=== PATIENT | male | born 1965 | race African-American/Black ===

== ENCOUNTER 2017-03-14 08:46 | Observation (INO) | payer OTHER ==
--- NOTE | ~2017-03-14 | DS ---
Unit #: [id number] #: [id number] Patient: SALINAS FRANCOIS [id number] [address] [place], [place] [address] [id number] MR#: [id number] NAME: SALINAS FRANCOIS ROOM: 579 Age: 52 Sex: M Admission Date: 03/14/2017 : 1965 Discharge Date: 03/15/2017 Attending Physician: José Guerrero M.D. Primary Care Physician: Rolando Munguia M.D. DISCHARGE SUMMARY DISCHARGE DIAGNOSES 1. Recurrent paroxysmal atrial fibrillation with RVR, now in sinus rhythm. 2. Cardiomyopathy with an left ventricular ejection fraction of 30%-35%, grade 1 diastolic dysfunction. 3. Alcohol use. 4. Tobaccoism. 5. Xarelto allergy. DIAGNOSTIC DATA CARDIOVASCULAR: Two-dimensional echocardiogram done on 03/14/2017 shows an ejection fraction of 30%-35%, moderate generalized hypokinesis of the left ventricle noted, normal left ventricular wall thickness. The ventricle wall is normal, impaired relaxation, normal function of all valves. LABORATORY: Most recent laboratory results are urine drug screen positive for marijuana. TSH 1.11, sodium 139, potassium 3.8, chloride 107, CO2 24, BUN 14, creatinine 1, glucose 95, magnesium 1.8. Oljsy-ce-bhmm troponin is less than 0.5. HOSPITAL COURSE The patient is a 52-year-old male who is known to [facility] from 2013, when he had atrial fibrillation with rapid ventricular rate. He had seen Dr. Nugent in the past. Also in 11/2013, a two-dimensional echocardiogram showed an ejection fraction of 35%-40%. The patient presented to the emergency department saying for the last two days he has not felt very well. He states that he felt his heart had been racing and it was staying consistent. He also endorsed some lightheadedness and dizziness that were associated with a rapid heart rate. He denied any chest pain or chest pressure. He did not have any syncopal episodes. Initially the patient was treated with an IV bolus of Cardizem 20 and started on a drip at 5 mg an hour. The patient was also given Lovenox 1 mg/kg times 1. The patient converted to sinus rhythm and the patient was started on Cardizem CD 120 mg p.o. daily. Today the patient's heart rate continues to show sinus rhythm. He is on Cardizem and aspirin. His repeat two-dimensional echocardiogram again showed an ejection fraction of 30%-35%. The patient will be started on an CARMELLA inhibitor. His CHADS VAD score is zero. I have discussed this patient with Dr. Guerrero and he will evaluate the patient prior to discharge to discuss anticoagulation with the patient. Unit #: [id number] #: [id number] Patient: SALINAS FRANCOIS DISPOSITION The patient will be discharged home after seen by Dr. Guerrero. FOLLOWUP The patient is to follow up with Dr. Nugent in three weeks. DIET Healthy heart diet. ACTIVITY As tolerated. DISCHARGE INSTRUCTIONS 1. Cardiac rehab to see for smoking cessation. 2. Quit smoking. 3. The patient is to seek medical attention or return to the emergency room if signs or symptoms worsen. DISCHARGE MEDICATIONS 1. Cardizem CD 120 mg p.o. daily. 2. Aspirin 81 mg p.o. daily. 3. Lisinopril 5 mg p.o. daily. Dictated by... Malia Sheffield A.P.R.N. for José Guerrero M.D. AM/ramon TD: 03/15/2017 10:25 JOB #: [id number] DISCHARGE SUMMARY Page 1 of 1 X Malia Sheffield [employer] X DISCHARGE SUMMARY
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
--- NOTE | ~2017-03-14 | EKG ---
PATIENT: SALINAS FRANCOIS UNIT #: [id number] Ventricular Rate: 155 BPM Atrial Rate: 153 BPM QRS Duration: 80 ms Q-T Interval: 260 ms QTC Calculation(Bezet): 417 ms Calculated R [place]: 68 degrees Calculated T [place]: 35 degrees Diagnosis Line: Atrial fibrillation with rapid ventricular Diagnosis Line: response Diagnosis Line: Abnormal ECG Diagnosis Line: When compared with ECG of 05-NOV-2013 16:43, Diagnosis Line: No significant change was found Diagnosis Line: Confirmed by ILBRA SLATER MD ([id number]) on 03/15/2017 Diagnosis Line: 11:13:03 PM INTERPRETING MD: NOHEMY ESTEVEZ
--- NOTE | ~2017-03-14 | CR72 ---
[facility] A Service of [facility] RADIOLOGY TEXT RESULTS PATIENT: SALINAS FRANCOIS LOCATION: [facility] 579-01 : [birth year] UNIT #: [id number] AGE: [address]: José Guerrero MD SEX: M ORDER DR: [id number] [facility] [address]. [place], [place] [address] [id number] MR#: [id number] Acc #: [id number] NAME: SALINAS FRANCOIS : 1965 SEX: M STUDY DATE/TIME: 03/14/2017 UNIT: [facility] ROOM: STUDY DESCRIPTION: CR Chest Single View Portable Attending Physician: Pamela Wong M.D. Ordering Physician: Pamela Wong M.D. Primary Care Physician: Rolando Munguia M.D. MEDICAL IMAGING REPORT This report is preliminary unless electronic signature is present EXAM Chest portable 03/14/2017 09:42 hours HISTORY 52-year-old man who presents with arrhythmia today. Hypertension. COMPARISON None FINDINGS Portable upright chest demonstrates normal cardiac, mediastinal and hilar contours. The lungs are well expanded and clear. There is no effusion. IMPRESSION Normal upright portable chest. Dictated by... Sameera Borges M.D. THIS IS AN ELECTRONICALLY VERIFIED REPORT Sameera Borges M.D. at 03/14/2017 2:28 PM SMM/mickey TD: 03/14/2017 12:01 JOB #: [id number] MEDICAL IMAGING REPORT Page 1 of 1 COPY
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
--- NOTE | ~2017-03-14 | EKG ---
PATIENT: SALINAS FRANCOIS UNIT #: [id number] Ventricular Rate: 83 BPM Atrial Rate: 83 BPM P-R Interval: 132 ms QRS Duration: 88 ms Q-T Interval: 414 ms QTC Calculation(Bezet): 486 ms P [place]: 65 degrees Calculated R [place]: 49 degrees Calculated T [place]: 30 degrees Diagnosis Line: Normal sinus rhythm Diagnosis Line: Prolonged QT Diagnosis Line: Abnormal ECG Diagnosis Line: When compared with ECG of 14-MAR-2017 09:18, Diagnosis Line: (unconfirmed) Diagnosis Line: Sinus rhythm has replaced Atrial fibrillation Diagnosis Line: Vent. rate has decreased BY 72 BPM Diagnosis Line: Confirmed by ZANDRA MAXWELL MD ([id number]) on 03/15/2017 Diagnosis Line: 10:05:08 AM INTERPRETING MD: ALISSA ESTEVEZ
[~2017-03-14 08:46] MED LIST: LORTAB 7.51 TAB 7.5/ PO; TOPROL XL PO; XARELTO20 MG PO
[2017-03-14 10:02] LABS: BASOPHIL% 0.6 % (0-2.5); EOSINOPHIL# 0.1 X10e3 (0-0.7); EOSINOPHIL% 1.8 % (0.0-7.0); HEMATOCRIT 48.3 % (38.0-50.0); HEMOGLOBIN 15.8 gm/dL (13.0-16.0); LYMPHOCYTE# 2.3 X10e3 (1.0-3.5); MEAN CELL VOLUME 98.2 FL (83-96); MEAN CORPUSCULAR HEMOGLOBIN 32.2 PG (28-34); MEAN CORPUSCULAR HGB CONC 32.8 g/dL (30-36); MEAN PLATELET VOLUME 7.7 FL (6.5-11.5); MONOCYTE# 0.6 X10e3 (0-1.0); MONOCYTE% 10.4 % (3.0-12.0); NEUTROPHIL# 3.1 X10e3 (1.5-7.1); NEUTROPHIL% 50.2 % (40-75); PLATELET COUNT 147 X10e3 (140-420); RED BLOOD COUNT 4.91 X10e (3.90-5.60); RED CELL DISTRIBUTION WIDTH 14.9 % (11.0-15.5); WHITE BLOOD COUNT 6.2 X10e3 (4.0-10.5)
[2017-03-14 10:03] LABS: DIFF IND NO
[2017-03-14 10:15] LABS: PARTIAL THROMBOPLASTIN TIME 28.5 SECONDS (23.5-31.3); PROTHROMBIN TIME (PATIENT) 10.4 SECONDS (9.6-11.5)
[2017-03-14 10:27] LABS: BILIRUBIN, DIRECT 0.2 mg/dL (0.0-0.2); BILIRUBIN,INDIRECT 0.7 mg/dL (0.0-0.9); BILIRUBIN,TOTAL 0.9 mg/dL (0.2-2.0); CREATININE SERUM 1.1 mg/dL (0.6-1.4); GLOM FILT RATE Estimated 90.3 mL/min (>60); MAGNESIUM 1.8 mg/dL (1.6-3.0); POTASSIUM 3.9 mmol/L (3.5-5.1)
[2017-03-14 10:42] LABS: POC - CKMB <1.0 ng/mL (0.0-7.9); POC - TROPONIN <0.05 ng/mL (<=0.05)
[2017-03-14 11:42] LABS: URINE SOURCE CLEAN CATCH
[2017-03-14 11:46] LABS: POC - CKMB <1.0 ng/mL (0.0-7.9); POC - TROPONIN <0.05 ng/mL (<=0.05)
[2017-03-14 11:50] LABS: URINE APPEARANCE CLEAR; URINE BILIRUBIN NEG (NEG); URINE BLOOD NEG (NEG); URINE COLOR YELLOW; URINE GLUCOSE NEG (NEG); URINE KETONE TRACE (NEG); URINE LEUKOCYTE ESTERASE NEG (NEG); URINE NITRATE NEG (NEG); URINE PROTEIN NEG (NEG); URINE SPECIFIC GRAVITY 1.017 (1.003-1.035)
[2017-03-14 11:58] LABS: CULTURE INDICATED? NO
[2017-03-14 12:02] LABS: AMPHETAMINE NEG (NEG); BARBITURATES NEG (NEG); BENZODIAZEPINES NEG (NEG); COCAINE NEG (NEG); MARIJUANA POS (NEG); OPIATES NEG (NEG); TRICYCLIC ANTIDEPRESSANTS NEG (NEG); U METHADONE NEG (NEG)
[2017-03-15 06:49] LABS: CALCIUM SERUM 9.2 mg/dL (8.4-10.2); GLOM FILT RATE Estimated 101.3 mL/min (>60); MAGNESIUM 1.8 mg/dL (1.6-3.0); POTASSIUM 3.8 mmol/L (3.5-5.1)
[2017-03-15] MEDS ORDERED: CARTIA XT PO (11:59)
[2017-03-15] MEDS ORDERED: LISINOPRIL5 MG PO (11:59)
[2017-03-15] MEDS ORDERED: ASPIRIN81 M2 PO (11:59)
== END 2017-03-15 12:43 | disposition home or self-care (01) ==
LOC: CED 08:46 → C5C 12:45 → CEDOF 12:45 → C5C 12:56 → CEDOF 12:56 → CED 12:56 → CEDOF 13:52 → C5C 13:52
PROVIDERS: Emergency Medicine
DX: I48.0 Paroxysmal atrial fibrillation (principal); I42.9 Cardiomyopathy, unspecified; I50.22 Chronic systolic (congestive) heart failure; F17.290 Nicotine dependence, other tobacco product, uncomplicated; R06.83 Snoring; Z88.8 Allergy status to other drugs, medicaments and biological substances; Z82.49 Family history of ischemic heart disease and other diseases of the circulatory system; Z80.9 Family history of malignant neoplasm, unspecified
CPT/HCPCS: 36415; 71010; 80048; 80076; 80307; 81003; 82553; 83735; 83880; 84443; 84484; 85025; 85610; 85730; 93005; 93306; 96365; 96366; 96374; 96375; 96376; 99285; G0378; J0153; J1650; J1940